=== PATIENT | female | born 1985 | race Caucasian/White ===

== ENCOUNTER → 2017-04-28 | Outpatient (CLI) | payer OTHER ==
[2017-04-28 11:20] LABS: MANUAL MICROSCOPIC REQUIRED? YES; URINE APPEARANCE CLOUDY (CLEAR); URINE BILIRUBIN NEG (NEG); URINE COLOR RED; URINE NITRITE NEG (NEG); URINE PH 5.5 (4.5-7.5); URINE SPECIFIC GRAVITY >= 1.030 (1.000-1.030); UROBILINOGEN NEG (NEG)
[2017-04-28 11:22] LABS: REVIEW REQ? NO
[2017-04-28 11:25] LABS: URINE RBC >30 /hpf (0-4)
[2017-04-28 11:41] LABS: URINE BACTERIA NEG (NEG)
== END | disposition home or self-care (01) ==
LOC: C.LABBC 09:34
PROVIDERS: ATTEND Physician Assistant
DX: R39.9 Unspecified symptoms and signs involving the genitourinary system (principal)

== ENCOUNTER 2017-08-02 02:16 | Emergency (ER) | payer OTHER ==
[~2017-08-02] VITALS: Ht 165.1 cm; Wt 51.7 kg
[2017-08-02 02:22] VITALS: TEMP 36.5; Ht 165.1 cm; Wt 51.7 kg
[2017-08-02] MEDS ORDERED: CEFTRIAXONE SOD INJ 1 GM ADDVIAL IV STA (02:40)
[2017-08-02] MEDS ORDERED: KETOROLAC TROMETHAMINE 30 MG/ML VIAL IV STA (02:40)
[2017-08-02] MEDS ORDERED: ONDANSETRON INJ 2 MG/ML 2 ML VIAL IV STA (02:40)
[2017-08-02] MEDS ORDERED: CALC500C70 PO (02:48)
[2017-08-02 02:58] LABS: BASO % 0.2 %; BASO ABS # 0.02 K/uL (0-0.2); COMPLETE YES; EOS % 0.6 %; HEMATOCRIT 38.9 % (37-47); IG% 0.2 %; MEAN CORPUSCULAR HEMOGLOBIN 30.5 pg (25-34); MEAN CORPUSCULAR HGB CONC 34.7 g/dl (32-36); MEAN PLATELET VOLUME 8.9 fL (7.4-10.4); MONO % 8.7 %; NEUT % 74.3 %; PLATELET COUNT 254 K/uL (130-400); RED BLOOD COUNT 4.42 M/uL (4.2-5.4); WHITE BLOOD COUNT 12.51 K/uL (4.8-10.8)
[2017-08-02 03:07] LABS: MANUAL MICROSCOPIC REQUIRED? YES; URINE APPEARANCE SL CLOUDY (CLEAR); URINE BILIRUBIN NEG (NEG); URINE COLOR RED; URINE NITRITE NEG (NEG); UROBILINOGEN NEG (NEG)
[2017-08-02 03:18] LABS: BUN/CREATININE RATIO 12.2 (10-20); CALCIUM 9.1 mg/dl (8.5-10.1); CREATININE 0.82 mg/dl (0.60-1.20); POTASSIUM 3.4 mmol/L (3.5-5.1)
[2017-08-02] MEDS ORDERED: POTASSIUM CHLORIDE 10 MEQ TABCR PO STA (03:24)
[2017-08-02 03:32] LABS: REVIEW REQ? NO
[2017-08-02 03:38] LABS: URINE BACTERIA NEG (NEG); URINE RBC >30 /hpf (0-4)
--- NOTE | 2017-08-02 03:38 | EMERGENCY ROOM VISIT NOTE ---
History First contact with patient: 02:27 Chief Complaint: URINARY SYMPTOMS Stated Complaint: URINARY SYMPTOMS, VOMITING Nursing Triage Summary: Pt having pain and burning on urination, frequency with blood in urine. Pt has lower back pain. Pt also having N/V History of Present Illness The patient is a 31 year old female who presents to the Emergency Room with complaints of urinary frequency, urgency, dysuria and hematuria for the past few days who tonight developed flank pain and nausea and vomiting. Patient denies chest pain, dyspnea, fever, chills, cough, congestion. She is tolerate by mouth fluids and food. She had a UTI a few months ago. Review of Systems See HPI for pertinent positives & negatives. A total of 10 systems reviewed and were otherwise negative. Past Medical/Surgical History none Social History Smoking Status: Never Smoker Smokeless Tobacco Use: No Alcohol Use: none Drug Use: none Housing Status: lives with family Occupation Status: employed Current/Historical Medications Scheduled Calcium/Vitamin D (Os-Alexander 500 Plus D), 1 TAB PO DAILY Physical Exam Vital Signs Date Time Temp Pulse Resp B/P (MAP) Pulse Ox O2 Delivery O2 Flow Rate FiO2 08/02/17 02:22 36.5 103 20 113/79 100 Room Air Physical Exam VITALS: Vitals are noted on the nurse's note and reviewed by myself. Vital signs stable. GENERAL: Pleasant female, in no acute distress, nondiaphoretic, well-developed well-nourished. SKIN: Capillary reflex less than 2 seconds. HEENT: Normocephalic. PERRLA. EOMI. Nares patent. Mucous membranes moist. Neck is supple without nuchal rigidity. HEART: Regular rate and rhythm without murmurs gallops or rubs. LUNGS: Clear to auscultation bilaterally without wheezes, rales or rhonchi. No retractions or accessory muscle use. ABDOMEN: Positive bowel sounds x 4. Normal tympanic percussion. Soft, suprapubic bladder tenderness, left CVA tenderness, without masses or organomegaly. Paz sign negative. No guarding or rebound tenderness. MUSCULOSKELETAL: No gross musculoskeletal defects. NEURO: Patient was alert and oriented to person place and time. Normal sensation to light and sharp touch. No focal neurological deficits. Medical Decision & Procedures Laboratory Results 08/02/17 02:44 Red Blood Count 4.42, Mean Corpuscular Volume 88.0, Mean Corpuscular Hemoglobin 30.5, Mean Corpuscular Hemoglobin Concent 34.7, Mean Platelet Volume 8.9, Neutrophils (%) (Auto) 74.3, Lymphocytes (%) (Auto) 16.0, Monocytes (%) (Auto) 8.7, Eosinophils (%) (Auto) 0.6, Basophils (%) (Auto) 0.2, Neutrophils # (Auto) 9.29, Lymphocytes # (Auto) 2.00, Monocytes # (Auto) 1.09, Eosinophils # (Auto) 0.08, Basophils # (Auto) 0.02 08/02/17 02:44 Test 08/02/17 02:35 08/02/17 02:44 Urine Color RED Urine Appearance SL CLOUDY (CLEAR) Urine pH 7.0 (4.5-7.5) Urine Specific Caroleen 1.020 (1.000-1.030) Urine Protein 2+ (NEG) Urine Glucose (UA) NEG (NEG) Urine Ketones NEG (NEG) Urine Occult Blood 3+ (NEG) Urine Nitrite NEG (NEG) Urine Bilirubin NEG (NEG) Urine Urobilinogen NEG (NEG) Urine Leukocyte Esterase SMALL (NEG) Urine Test NEG (NEG) White Blood Count 12.51 K/uL (4.8-10.8) Red Blood Count 4.42 M/uL (4.2-5.4) Hemoglobin 13.5 g/dL (12.0-16.0) Hematocrit 38.9 % (37-47) Mean Corpuscular Volume 88.0 fL (80-100) Mean Corpuscular Hemoglobin 30.5 pg (25-34) Mean Corpuscular Hemoglobin Concent 34.7 g/dl (32-36) Platelet Count 254 K/uL (130-400) Mean Platelet Volume 8.9 fL (7.4-10.4) Neutrophils (%) (Auto) 74.3 % Lymphocytes (%) (Auto) 16.0 % Monocytes (%) (Auto) 8.7 % Eosinophils (%) (Auto) 0.6 % Basophils (%) (Auto) 0.2 % Neutrophils # (Auto) 9.29 K/uL (1.4-6.5) Lymphocytes # (Auto) 2.00 K/uL (1.2-3.4) Monocytes # (Auto) 1.09 K/uL (0.11-0.59) Eosinophils # (Auto) 0.08 K/uL (0-0.5) Basophils # (Auto) 0.02 K/uL (0-0.2) RDW Standard Deviation 40.9 fL (36.4-46.3) RDW Coefficient of Variation 12.7 % (11.5-14.5) Immature Granulocyte % (Auto) 0.2 % Immature Granulocyte # (Auto) 0.03 K/uL (0.00-0.02) Anion Gap 5.0 mmol/L (3-11) Est Creatinine Clear Calc Drug Dose 81.9 ml/min Estimated GFR () 111.3 Estimated GFR (Non- 96.0 BUN/Creatinine Ratio 12.2 (10-20) Calcium Level 9.1 mg/dl (8.5-10.1) Medications Administered Medications (Trade) Dose Ordered Sig/Mars Route Start Time Stop Time Status Last Admin Dose Admin Ketorolac Tromethamine (Toradol Inj) 30 mg NOW STAT IV 08/02/17 02:40 08/02/17 02:42 DC 08/02/17 02:51 30 MG Ondansetron HCl (Zofran Inj) 4 mg NOW STAT IV 08/02/17 02:40 08/02/17 02:42 DC 08/02/17 02:51 4 MG Ceftriaxone Sodium (Rocephin Inj) 1 gm NOW STAT IV 08/02/17 02:40 08/02/17 02:42 DC 08/02/17 02:52 1 GM ED Course Prior records/ancillary studies reviewed. Triage Nursing notes reviewed. The patient's history was concerning for urinary symptoms with flank pain Differential diagnosis: Etiologies such as pyelonephritis, renal colic, appendicitis, diverticulitis, mesenteric ischemia, aortic pathology, infections, inflammatory bowel disease, PUD, biliary pathology, UTI, as well as others were entertained. Physical examination findings: As above. ER treatment provided: Rocephin, Toradol, Zofran On reassessment the patient felt better. Diagnostic interpretation by me: The labs revealed leukocytosis, hypokalemia. Urinalysis revealed concerns for infection and sent for culture. Prior urine culture was reviewed and patient was resistant to ampicillin Imaging studies: US RENAL: Right kidney measures 9.9 cm in length. No hydronephrosis or stone. Left kidney measures 10.5 cm in length. No hydronephrosis or stone. Slightly under distended bladder which is otherwise unremarkable. Bilateral ureteral jets visualized. Radiologist: Latisha Maurer M.D. It appears that the patient has pyelonephritis. Patient was neurovascularly and neurologically intact. She is afebrile and nontoxic. She did not have acute abdomen on exam. She was tolerating fluids. She is advised take medications as directed, rest, stay well-hydrated and to follow-up family care in a few days or here in the ER sooner for fevers, vomiting, pain, worsening signs or symptoms or as needed.By the evaluation outlined above emergent etiologies such as appendicitis, diverticulitis, mesenteric ischemia, aortic pathology, inflammatory bowel disease, PUD, biliary pathology, as well as others were deemed relatively unlikely. The pt informed about the findings as listed above. All questions were answered and pleased with the treatment. Return instructions were outlined and the patient was discharged in stable condition. Outpatient prescription management: Omnicef, Zofran, Pyridium Referral: The patient was referred back to their primary care physician for follow-up in 2 to 3 days for a recheck of the current condition. Case reviewed with my attending The chart was completed utilizing [employer] Speech voice recognition software. Grammatical errors, random word insertions, pronoun errors, and incomplete sentences are an occassional consequence of this system due to software limitations, ambient noise, and hardware issues. Any formal questions or concerns about the content, text, or information contained within the body of this dictation should be directly addressed to the physician liaison inspection laboratory assistant for clarification. Medical Decision As above Medication Reconcilliation Current Medication List: was personally reviewed by me Blood Pressure Screening Patient's blood pressure: Normal blood pressure Impression Primary Impression: Pyelonephritis Departure Information Dispostion Home / Self-Care Condition GOOD Referrals Pro,Yony Beauchamp M.D. (PCP) Patient Instructions [facility] Additional Instructions Omnicef 300mg: Take one pill twice daily for 7 days for your urine infection. All antibiotics can cause diarrhea. If this occurs and you feel worse or it does not resolve in 1-2 days follow up with your doctor or return to the Emergency Department as this could be signs of serious underlying problems. If you experience any pain in your tendons or any tendon injury return to the ER for re-evaluation. Any medication can cause an allergic reaction, stop the pills immediately and return to the ER for rash, hives, breathing difficulties, or swelling. Pyridium 200mg: Take one pill three times daily as needed for urinary discomfort. This medication will turn your urine orange. This is normal and nothing to be concerned about. Zofran 4 mg: Take one every six hours as needed for nausea. Avoid alcohol, operating machinery or dangerous equipment, working on ladders or roofs, DRIVING , or situations where being under the influence may be dangerous. Ibuprofen(Motrin, Advil) may be used for fever or pain. Use 400mg every six hours as needed. Take with food. Avoid using more than 1600mg in a 24 hour period. Do not use 1600mg per day for more than three consecutive days without physician direction. Prolonged inappropriate use can lead to stomach upset or ulcers. (AND/OR) Acetaminophen(Tylenol) may be used for fever or pain. Use 500mg every six hours as needed. Avoid using more than 2000mg in a 24 hour period. Rest and drink plenty of fluids as tolerated. Slow sips of water or sports drinks are recommended instead of large amounts all at once. Continue current medications. Once your stomach is settled start with a clear liquid diet (jello, soup broth, etc.) and then advance as tolerated. You should avoid full, heavy meals for about 24 hrs from the time your symptoms resolved. Return to the ER immediately for worsening or persistent abdominal/back pain, vomiting, fevers, worsening of your condition, or as needed. Follow up with your primary physician within 2-3 days for a recheck of the current condition.
[2017-08-02] MEDS ORDERED: CEFDINIR 300 MG CAP PO STA (03:39)
[2017-08-02] MEDS ORDERED: CEFD300C2 PO (03:41)
[2017-08-02] MEDS ORDERED: ONDA4TAB10 SL (03:41)
[2017-08-02] MEDS ORDERED: PHEN-876 PO (03:41)
[2017-08-02 03:42] LABS: ZZUR CULT IF INDIC CLEAN CATCH NO
[2017-08-02] MEDS ORDERED: PHENAZOPYRIDINE HOME PACK 200 MG VIAL PO ONE (03:45)
[2017-08-02] MEDS ORDERED: ONDANSETRON HOME PACK 4MG OD TAB PO ONE (03:45)
[2017-08-02 04:00] VITALS: BP 100/51; PULSE 81; O2SAT 99
--- NOTE | 2017-08-02 05:55 | DIAGNOSTIC IMAGING REPORT ---
(RENAL)RETROPERITON COMP CLINICAL HISTORY: 31 years-old Female presenting with back pain, UTI. TECHNIQUE: Real-time grayscale and limited color Doppler ultrasound imaging of the kidneys and bladder was performed. COMPARISON: CT from 12/09/2014. FINDINGS: Right kidney: Normal echogenicity. Right kidney measures 9.9 cm. No hydronephrosis. No convincing evidence of calculus or mass. Normal perfusion. Left kidney: Normal echogenicity. Left kidney measures 10.5 cm. No hydronephrosis. No convincing evidence of calculus or mass. Normal perfusion. Bladder: No bladder wall thickening. Bilateral ureteral jets present. Other: None. IMPRESSION: 1. Normal renal ultrasound. No obstruction. Electronically signed by: Moncho Calero M.D. 08/02/2017 5:54 AM Dictated Date/Time: 08/02/2017 5:53 AM
== END 2017-08-02 04:00 | disposition home or self-care (01) ==
LOC: C.EDB 02:17 → C.EDA 04:00
DX: N12 Tubulo-interstitial nephritis, not specified as acute or chronic (principal)

== ENCOUNTER 2020-03-01 03:51 | Inpatient (IN) ==
[2020-03-01] MEDS ORDERED: OXYTOCIN 30 UNITS/500 ML BAG IV PRN ×2 (04:31→11:00)
[2020-03-01 04:48] LABS: Hemoglobin 12.8 g/dL (12.0-16.0); Mean Corpuscular Hemoglobin 30.8 pg (25-34); Mean Corpuscular Volume 91.3 fL (80-100); Mean Platelet Volume 9.4 fL (7.4-10.4); Platelet Count 262 K/uL (130-400); RDW Coefficient of Variation 16.7 % (11.5-14.5); RDW Standard Deviation 54.8 fL (36.4-46.3); Red Blood Count 4.16 M/uL (4.2-5.4); White Blood Count 12.52 K/uL (4.8-10.8)
[2020-03-01 04:56] LABS: Mean Corpuscular Hgb Conc 33.7 g/dL (32-36)
[2020-03-01] MEDS: LACTATED RINGER'S 1,000 ML IV PRN ×2 (07:00→09:44)
[2020-03-01] MEDS ORDERED: BUPIVACAINE 0.25% 30 ML VIAL ONE (07:12)
[2020-03-01] MEDS ORDERED: fentaNYL citrate 100 MCG/2 ML VIAL ONE (07:12)
[2020-03-01] MEDS ORDERED: ePHEDrine sulfate 50 MG/ML AMP ONE (07:12)
[2020-03-01] MEDS ORDERED: fentaNYL 2MCG/ML ROPIV 1.25MG/ML 100 ML BAG EPI ONE (07:13)
[2020-03-01] MEDS ORDERED: DiphenhydrAMINE HCL 50 MG/ML VIAL IV PRN (07:42)
[2020-03-01] MEDS ORDERED: NALOXONE HCL 0.4 MG/1 ML VIAL/CARP IV PRN (07:42)
[2020-03-01] MEDS ORDERED: NALOXONE HCL 1 MG in SODIUM CHLORIDE 0.9% 1000ML 1,000 ML IV PRN (07:42)
[2020-03-01] MEDS ORDERED: ONDANSETRON INJ 2 MG/ML 2 ML VIAL IV PRN (07:42)
[2020-03-01] MEDS ORDERED: fentaNYL 2MCG/ML ROPIV 1.25MG/ML 100 ML BAG EPI PRN (07:42)
[2020-03-01] MEDS ORDERED: ePHEDrine sulfate 50 MG/ML AMP IV PRN (07:42)
--- NOTE | 2020-03-01 07:45 | Anesthesiology Consultation ---
Date of Service March 01, 2020 Assessment & Plan (1) Encounter for pre-operative examination: Chart Review Chart Review: Patient NOT seen in Pre Admission Testing and Acceptable Risk for Labor Epidural Consults Requested none ASA ASA2 Proposed Anesthesia Anesthesia Type: Labor Epidural Risk / Benefits Reviewed With: PT / POA / Parent / Guardian, Accepts Plan and Informed Consent Obtained History Height/Weight Height: 5 ft 5 in Weight: 66.224 kg Allergies Allergy/AdvReac Type Severity Reaction Status Date / Time Penicillins Allergy Unknown Verified 02/22/20 08:11 Medications Home Medications Medication Instructions Recorded Confirmed Last Taken prenat.vits,adonis,vgt-qovm-[id number] 1 tab PO DAILY 08/18/19 03/01/20 02/29/20 ferrous sulfate 325 mg PO DAILY 01/04/20 03/01/20 02/29/20 12:00 Active Medications Generic Name Dose Route Start Last Admin Trade Name Freq PRN Reason Stop Dose Admin Lactated Ringer's 1,000 mls @ 125 mls/hr 03/01/20 04:31 03/01/20 07:00 Lr IV 03/03/20 04:30 999 mls/hr .Q8H PRN Administration L&D Protocol Protocol NPO Date Last Intake of Fluids: 03/01/20 Time Last Intake of Fluids: 06:00 Date Last Intake of Solids: 02/29/20 Time Last Intake of Solids: 20:00 Past Medical History Medical History Adenomyosis Endometriosis History of varicella (spontaneous vaginal delivery) (spontaneous vaginal delivery) 2009- Exercise / Class Metabolic Activity II 4-5 Yardwork/Stairs/Walk up hill Past Family History Family History Mother Dyslipidemia Hypertension Breast cancer Other Cancer Endometriosis Past Surgical History Surgical History H/O oral surgery History of ear surgery History of laparoscopy Past Anesthesia History No Hx of Anesthesia Complications and No Family Hx of Anesthesia Complications History of PONV No Hx of PONV and No Hx of Motion Sickness Social History Smoking Status: Never smoker Hx Alcohol Use: No Hx Substance Use: No Physical Exam Vital Signs Last Vital Signs Temp 36.9 C 03/01/20 06:06 Pulse 77 03/01/20 07:42 Resp 20 03/01/20 04:08 BP 101/61 03/01/20 07:42 Pulse Ox 99 03/01/20 07:40 ENMT Mouth: no dentition abnormality Thyromental Distance: > or= 3.5 Finger Breadths Mallampati Class: II Neck normal visual inspection Respiratory normal respiratory effort Auscultation: lungs clear to auscultation bilaterally Cardiovascular Rate/Rhythm: regular rate and regular rhythm Psychiatric Orientation: alert Testing Laboratory Results 03/01/20 04:39
--- NOTE | 2020-03-01 08:01 | History & Physical Report ---
Date of Service March 01, 2020 Assessment & Plan (1) PROM with onset of labor within 24 hours of rupture: pt has been admitted. received epidural. fhts categ 1. Admission and Anticipated Discharge Date Admission Date: March 01, 2020 History of Present Illness Chief Complaint: rom at 0230 clear fluid Primary Care Provider: Yony Benavidez MD 34yo at 40+wks ega presents with above cc. Was confirmed rom by nursing and beginning to feel ctx. When i saw her this am, was feeling stronger ctx. no vb. +fm. PNC uncomplicated. has pap smear issues requiring colpo pp PNL Rh pos, ri, gbs neg OBH: x 1 GYNH: nl paps no stds. Allergies Allergy/AdvReac Type Severity Reaction Status Date / Time Penicillins Allergy Unknown Verified 02/22/20 08:11 Home Medications Home Medications Medication Instructions Recorded Confirmed Type prenat.vits,adonis,vth-lpqb-puczv 1 tab PO DAILY 08/18/19 03/01/20 History ferrous sulfate 325 mg PO DAILY 01/04/20 03/01/20 History Patient History Medical History Adenomyosis Endometriosis History of varicella (spontaneous vaginal delivery) (spontaneous vaginal delivery) 2010- Surgical History H/O oral surgery History of ear surgery History of laparoscopy Family History Mother Dyslipidemia Hypertension Breast cancer Other Cancer Endometriosis Social History Smoking Status: Never smoker Hx Alcohol Use: No Hx Substance Use: No Preferred Language: Greek Communication Ability: Effective Insulation Mechanic Required: No Beliefs That Will Affect Care: None marital status: Single marital status details: Tru Phillips (26) [phone] Current Living Situation: Spouse Current Living Situation Comment: lives with son, 1 dog. 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 Other Information That Helps Us Care for You: No Feels Safe at Home: Yes Safety Concerns: Feels Safe At This Time Review of Systems per hpi Physical Exam Constitutional: WD/WN, vitals as above Gastrointestinal (Abdomen): Percussion/Palpation: abdomen soft (gravid); abdomen nontender Neurologic: grosslynormal Psychiatric: A+Ox3, euthymic affect Genitourinary: OB Exam Abdomen: + vertex and + estimated weight (7#) Manual OB Exam: + cervical dilation (3cm per nurse) OB Exam Monitor Tracing: + external FHT monitor used (130 mod variability), + external uterine monitor used (q3), + category I and + normal FHT variability Results & Data ([facility]) Vital Signs (Past 12 Hours) Vital Signs Temp Pulse Resp BP Pulse Ox 03/01/20 07:55 84 100 03/01/20 07:54 76 100/61 03/01/20 07:52 63 97/58 L 03/01/20 07:50 75 97/56 L 100 03/01/20 07:48 84 104/63 03/01/20 07:46 86 103/59 L 03/01/20 07:45 81 100 03/01/20 07:44 80 98/60 L 03/01/20 07:42 77 101/61 03/01/20 07:40 81 103/62 99 03/01/20 07:38 79 103/66 03/01/20 07:36 75 107/61 03/01/20 07:35 77 100 03/01/20 07:34 87 110/59 L 03/01/20 07:32 80 104/63 03/01/20 07:30 88 100 03/01/20 07:25 84 99 03/01/20 07:20 82 99 03/01/20 07:16 76 98 03/01/20 07:10 97 H 98 03/01/20 07:04 94 H 118/70 03/01/20 06:06 98.4 F 03/01/20 04:08 98.1 F 88 20 110/67 03/01/20 04:07 88 110/67 03/01/20 04:06 98.1 F 20 Coding Level of Care Code None Diagnoses PROM with onset of labor within 24 hours of rupture O42.00
[2020-03-01] MEDS ORDERED: OXYCODONE/ACETAMINOPHEN 5mg/325mg TAB PO PRN (11:00)
[2020-03-01] MEDS ORDERED: ACETAMINOPHEN 325 MG TAB PO PRN (11:00)
[2020-03-01] MEDS ORDERED: bisacodyL 10 MG SUPP PR PRN (11:00)
[2020-03-01] MEDS ORDERED: DIPHTHERIA/TETANUS/PERTUSSIS 0.5 ML SYR/VIAL IM ONE (11:00)
[2020-03-01] MEDS ORDERED: SUPERCREAM 0.870% 15 GM JAR EXT PRN (11:00)
[2020-03-01] MEDS ORDERED: BENZOCAINE 20% AER SPR 82.5 GM CAN EXT PRN (11:00)
[2020-03-01] MEDS ORDERED: HYDROCORTISONE ACETATE 25 MG SUPP PR PRN (11:00)
--- NOTE | 2020-03-01 11:52 | Anesthesia Procedure Note ---
Date of Service March 01, 2020 Anesthesia Post Epidural Note Vital Signs Vital Signs: Temp Pulse Resp BP Pulse Ox 36.9 C 92 H 20 108/57 L 96 03/01/20 11:05 03/01/20 11:48 03/01/20 11:20 03/01/20 11:48 03/01/20 10:15 Notes Mental Status: alert / awake / arousable Nausea / Vomiting: adequately controlled Pain: adequately controlled Airway Patency, RR, SpO2: stable & adequate BP & HR: stable & adequate Hydration State: stable & adequate Neuraxial Anesthesia: was administered and sensory block is resolving Anesthetic Complications: no major complications apparent and Pt Satisfied with anesthetic care Epidural: Removed without complications and With tip intact
--- NOTE | 2020-03-01 14:19 | Delivery Summary ---
Vaginal Delivery Summary Date of Service March 01,
--- NOTE | 2020-03-01 14:31 | Delivery Summary ---
DATE OF OPERATION: 03/01/2020 The patient is a 34-year-old 2, para 1-0-0-1 white female, who presented at 40+ weeks with ruptured membranes at approximately 0300 hours. The fluid was clear. She progressed into active labor spontaneously. She received effective epidural analgesia. After she was fully dilated she pushed effectively over intact perineum for delivery of a viable female . After the head was delivered, the right arm then presented and delivered spontaneously followed by the rest of the infant. The was then placed on the mother's abdomen for further attention and drying. The infant was crying and moving all 4 limbs. The cord was clamped after approximately 30 seconds as the cord was somewhat short. The placenta was then expressed intact with a 3-vessel cord. A second degree perineal laceration was repaired with 3-0 chromic in the usual fashion. Estimated blood loss was 400 mL. Mother and infant were doing well after delivery. bleeding was controlled with dilute Pitocin. I attest to the content of the Intraoperative Record and any orders documented therein. Any exception s are noted below.
[2020-03-01] MEDS: IBUPROFEN 600 MG TAB PO PRN ×2 (15:20→20:28)
[2020-03-01] MEDS: DOCUSATE SODIUM 100 MG CAP PO SCH (20:28)
[2020-03-02] MEDS: IBUPROFEN 600 MG TAB PO PRN ×2 (02:02→08:36)
[2020-03-02 07:09] LABS: Hematocrit (blood only) 29.4 % (37-47); Hemoglobin 9.9 g/dL (12.0-16.0); Mean Corpuscular Hemoglobin 30.7 pg (25-34); Mean Corpuscular Hgb Conc 33.7 g/dL (32-36); Mean Platelet Volume 9.2 fL (7.4-10.4); Platelet Count 197 K/uL (130-400); RDW Coefficient of Variation 16.8 % (11.5-14.5); RDW Standard Deviation 56.3 fL (36.4-46.3); Red Blood Count 3.23 M/uL (4.2-5.4); White Blood Count 15.67 K/uL (4.8-10.8)
[2020-03-02] MEDS ORDERED: PRENATAL VITAMIN 1 TAB PO SCH (08:00)
--- NOTE | 2020-03-02 08:02 | Obstetrical Progress Note ---
Date of Service March 02, 2020 Assessment & Plan (1) Encounter for care and examination after delivery: good post- recovery continue current care plan Subjective Ambulation: ambulating normally Voiding: no voiding problems Passing Gas:: Yes Diet Tolerance:: regular diet Lochia:: Moderate Feeding Type:: bottle feeding Review of Systems All systems reviewed & are unremarkable except as noted in HPI & below Physical Exam Constitutional WD/WN, vitals as above Psychiatric A+Ox3, euthymic affect Genitourinary OB Exam Abdomen: + fundal height (1 below U) Fundus: + firm Results & Data ([facility]) Vital Signs (Past 12 Hours) Vital Signs Temp Pulse Resp BP Pulse Ox 03/02/20 03:10 98.2 F 82 16 127/82 03/01/20 23:10 98.4 F 76 18 101/66 03/01/20 20:15 98.4 F 93 H 20 107/67 98
[2020-03-02] MEDS: DOCUSATE SODIUM 100 MG CAP PO SCH (08:36)
[2020-03-02] MEDS ORDERED: bisacodyL 5 MG TABEC PO SCH (20:00)
== END 2020-03-02 11:50 | disposition home or self-care (01) | DRG 807 ==
LOC: OPB 03:51 → 4S1 03:54 → 4S2 15:35

== ENCOUNTER 2021-08-04 22:56 | Inpatient (IN) ==
[2021-08-04] MEDS ORDERED: OXYTOCIN 30 UNITS/500 ML BAG IV PRN (23:15)
[2021-08-04] MEDS ORDERED: LACTATED RINGER'S 1,000 ML IV PRN (23:15)
[2021-08-04] MEDS ORDERED: ePHEDrine sulfate 50 MG/ML AMP ONE (23:27)
[2021-08-04] MEDS ORDERED: fentaNYL citrate 100 MCG/2 ML VIAL ONE (23:28)
[2021-08-04] MEDS ORDERED: BUPIVACAINE 0.25% 30 ML VIAL ONE (23:28)
[2021-08-04] MEDS ORDERED: fentaNYL 2MCG/ML ROPIVACAINE 1.25MG/ML 100 ML BAG EPI ONE (23:28)
[2021-08-04] MEDS ORDERED: SODIUM CHLORIDE 0.9% INJ 10 ML VIAL ONE (23:28)
[2021-08-04 23:37] LABS: Hematocrit (blood only) 29.8 % (37-47); Hemoglobin 9.5 g/dL (12.0-16.0); Mean Corpuscular Hemoglobin 27.7 pg (25-34); Mean Corpuscular Volume 86.9 fL (80-100); Mean Platelet Volume 9.1 fL (7.4-10.4); Nucleated RBC # (auto) 0.02 K/uL (0-0); Nucleated RBC % (auto) 0.1 %; Platelet Count 336 K/uL (130-400); RDW Standard Deviation 47.7 fL (36.4-46.3); Red Blood Count 3.43 M/uL (4.2-5.4); White Blood Count 11.52 K/uL (4.8-10.8)
[2021-08-04 23:42] LABS: Mean Corpuscular Hgb Conc 31.9 g/dL (32-36)
[2021-08-04] MEDS ORDERED: diphenhydrAMINE 50 MG/ML VIAL IV PRN (23:47)
[2021-08-04] MEDS ORDERED: fentaNYL 2MCG/ML ROPIVACAINE 1.25MG/ML 100 ML BAG EPI PRN (23:47)
[2021-08-04] MEDS ORDERED: ePHEDrine sulfate 50 MG/ML AMP IV PRN (23:47)
[2021-08-04] MEDS ORDERED: NALOXONE HCL 1 MG in SODIUM CHLORIDE 0.9% 1000ML 1,000 ML IV PRN (23:47)
[2021-08-04] MEDS ORDERED: ONDANSETRON INJ 2 MG/ML 2 ML VIAL IV PRN (23:47)
[2021-08-04] MEDS ORDERED: NALBUPHINE HCL INJ 10 MG/ML AMP IV PRN (23:47)
[2021-08-04] MEDS ORDERED: NALOXONE HCL 0.4 MG/1 ML VIAL/CARP IV PRN (23:47)
--- NOTE | 2021-08-04 23:47 | Anesthesiology Consultation ---
Date of Service August 04, 2021 Assessment & Plan (1) Encounter for pre-operative examination: Chart Review Chart Review: Acceptable Risk for Surgery and Patient NOT seen in Pre Admission Testing Consults Requested none History Height/Weight Height: 5 ft 5 in Weight: 65.771 kg Allergies Allergy/AdvReac Type Severity Reaction Status Date / Time Penicillins Allergy Unknown Unknown Verified 08/04/21 23:25 Medications Home Medications Medication Instructions Recorded Confirmed Last Taken prenat.vits,adonis,jsy-zpcg-lrnco 1 tab PO HS 01/21/21 08/04/21 08/04/21 ferrous sulfate 325 mg (65 mg 325 mg PO HS 03/09/21 08/04/21 08/04/21 iron) tablet (iron) acetone (urine) test (Ketone Urine #50 ea 07/01/21 07/24/21 Unknown Test) blood sugar diagnostic (OneTouch #150 ea 07/01/21 07/24/21 Unknown Verio test strips) blood-glucose meter (OneTouch #1 ea 07/01/21 07/24/21 Unknown Verio Flex meter) lancets 33 gauge (OneTouch Delica #150 ea 07/01/21 07/24/21 Unknown Plus Lancet) Past Medical History Medical History Adenomyosis Endometriosis History of varicella (spontaneous vaginal delivery) (spontaneous vaginal delivery) 2009- Past Family History Family History Mother Dyslipidemia Hypertension Breast cancer, Onset Age: 45 Father Elevated PSA Brother No problems noted. Son No problems noted. Daughter No problems noted. Other Cancer Endometriosis Past Surgical History Surgical History H/O oral surgery wisdom teeth removal History of ear surgery cosmetic, "ears pinned" History of laparoscopy Social History Smoking Status: Never smoker Hx Alcohol Use: No Hx Substance Use: No substance use type: does not use Physical Exam Vital Signs Last Vital Signs Temp 36.8 C 08/04/21 23:25 Pulse 99 H 08/04/21 23:17 Resp 18 08/04/21 23:25 BP 121/84 08/04/21 23:17 Testing Laboratory Results 08/04/21 23:27
--- NOTE | 2021-08-05 01:27 | History & Physical Report ---
Date of Service August 05, 2021 Assessment & Plan (1) Normal labor: Plan: IUP at 39+ weeks in active labor with SPROM requesting epidural analgesia anticipate vaginal Admission and Anticipated Discharge Date Admission Date: August 04, 2021 History of Present Illness Primary Care Provider: Hazel Burgess MD Patient is a 35 yo white female EDC 08/08/21 who presents with SPROM and onset of regular ctns. complicated by diet controlled GDM. AC's have been normal . GBS negative. Allergies Allergy/AdvReac Type Severity Reaction Status Date / Time Penicillins Allergy Unknown Unknown Verified 08/04/21 23:25 Home Medications Medication Instructions Recorded Confirmed Type prenat.vits,adonis,ajb-kdil-ewajv 1 tab PO HS 01/21/21 08/04/21 History ferrous sulfate 325 mg (65 mg 325 mg PO HS 03/09/21 08/04/21 History iron) tablet (iron) acetone (urine) test (Ketone Urine #50 ea 07/01/21 07/24/21 Rx Test) blood sugar diagnostic (OneTouch #150 ea 07/01/21 07/24/21 Rx Verio test strips) blood-glucose meter (OneTouch #1 ea 07/01/21 07/24/21 Rx Verio Flex meter) lancets 33 gauge (OneTouch Delica #150 ea 07/01/21 07/24/21 Rx Plus Lancet) Patient History Medical History Adenomyosis Endometriosis History of varicella (spontaneous vaginal delivery) (spontaneous vaginal delivery) 2009- Surgical History H/O oral surgery wisdom teeth removal History of ear surgery cosmetic, "ears pinned" History of laparoscopy Family History Mother Dyslipidemia Hypertension Breast cancer, Onset Age: 45 Father Elevated PSA Brother No problems noted. Son No problems noted. Daughter No problems noted. Other Cancer Endometriosis Social History (Updated 05/21/21 @ 14:25 by Hazel Burgess MD) Smoking Status: Never smoker Second Hand Exposure: No; Hx Alcohol Use: No Hx Substance Use: No Preferred Language: Tajik Communication Ability: Effective Visual Impairment: No Limitations Hearing Ability: Normal Community Development Specialist Required: No Beliefs That Will Affect Care: None marital status: Single marital status details: Tru Phillips (27) [phone] Current Living Situation: Significant Other Current Living Situation Comment: lives with FOB, children, 1 dog. 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, patient access How many Children do You have: 2 Other Information That Helps Us Care for You: No Feels Safe at Home: Yes Safety Concerns: Feels Safe At This Time Childhood Exposure to Second-Hand Smoke: No caffeine: Yes during the past year weight has: remained stable Dental Care, Regularly: No Physical Activity Frequency: Daily Seatbelt Use: always Sunscreen Use: Yes Assistive Devices: None Review of Systems All systems reviewed & are unremarkable except as noted in HPI & below Physical Exam Constitutional: WD/WN, vitals as above Psychiatric: A+Ox3, euthymic affect Genitourinary: OB Exam Abdomen: + vertex and + regular contractions Manual OB Exam: + cervical dilation (on admission) 7 cm and + amniotic fluid (grossly ruptured) clear OB Exam Monitor Tracing: + external FHT monitor used, + external uterine monitor used, + category I and + normal FHT variability Results & Data ([facility]) Vital Signs (Past 12 Hours) Vital Signs Temp Pulse Resp BP Pulse Ox 08/05/21 01:18 108 H 100 08/05/21 01:13 77 100 08/05/21 01:08 71 100 08/05/21 01:05 75 108/59 L 08/05/21 01:03 70 100 08/05/21 00:58 71 98 08/05/21 00:53 76 98 08/05/21 00:51 75 105/53 L 08/05/21 00:48 82 100 08/05/21 00:43 90 100 08/05/21 00:40 18 08/05/21 00:38 83 99 08/05/21 00:35 83 100/59 L 08/05/21 00:33 81 98 08/05/21 00:28 87 101/60 99 08/05/21 00:25 16 08/05/21 00:23 89 98 08/05/21 00:22 84 99/58 L 08/05/21 00:20 83 16 99/57 L 08/05/21 00:18 98 H 103/55 L 98 08/05/21 00:16 90 113/54 L 08/05/21 00:15 98.2 F 18 08/05/21 00:14 94 H 128/57 L 90 08/05/21 00:13 96 H 99 08/05/21 00:12 133 H 126/53 L 08/05/21 00:10 98 H 113/56 L 08/05/21 00:08 85 18 122/65 98 08/05/21 00:03 96 H 98 08/04/21 23:58 83 99 08/04/21 23:53 88 94 08/04/21 23:25 98.2 F 18 08/04/21 23:17 99 H 121/84 Coding Level of Care Code None Diagnoses Normal labor O80; Z37.9
[2021-08-05] MEDS ORDERED: DIPHTHERIA/TETANUS/PERTUSSIS 0.5 ML SYR/VIAL IM ONE (02:35)
[2021-08-05] MEDS ORDERED: HYDROCORTISONE ACETATE 25 MG SUPP PR PRN (02:35)
[2021-08-05] MEDS ORDERED: SUPERCREAM 0.870% 15 GM JAR EXT PRN (02:35)
[2021-08-05] MEDS ORDERED: OXYTOCIN 30 UNITS/500 ML BAG IV PRN (02:35)
[2021-08-05] MEDS ORDERED: bisacodyL 10 MG SUPP PR PRN (02:35)
[2021-08-05] MEDS ORDERED: ACETAMINOPHEN 325 MG TAB PO PRN (02:35)
[2021-08-05] MEDS ORDERED: BENZOCAINE 20% AER SPR 82.5 GM CAN EXT PRN (02:35)
[2021-08-05] MEDS ORDERED: oxyCODONE/ACETAMINOPHEN 5mg/325mg TAB PO PRN (02:35)
--- NOTE | 2021-08-05 02:48 | Delivery Summary ---
Vaginal Delivery Summary Date of Service August 05, 2021 Vaginal Delivery Summary and 1st Degree LAC Patient is a 35-year-old 3 para 2-0-0-2 white female who presents at 39+ weeks with spontaneous rupture of membranes for clear fluid and active labor. She requested epidural analgesia upon arrival in labor and delivery and progressed to complete dilation with the urge to push. She pushed effectively over intact perineum for delivery of a viable female . Tight nuchal cord was cut and clamped prior to delivering the rest of the infant. The rest of the infant delivered easily and was placed on the mother's abdomen for further attention and drying. She was vigorous and moving all 4 limbs. The placenta was expressed intact with a three-vessel cord. A first-degree perineal laceration was repaired with 3-0 chromic in the usual fashion. Estimated blood loss was 200 cc. bleeding was controlled with dilute Pitocin and fundal massage. Mother and were doing well after delivery. [facility] Vaginal Delivery Charge Delivery Type Details: and 1st Degree LAC
[2021-08-05] MEDS: IBUPROFEN 600 MG TAB PO PRN ×4 (03:04→20:27)
--- NOTE | 2021-08-05 06:51 | Anesthesia Procedure Note ---
Date of Service August 05, 2021 Anesthesia Post Epidural Note Vital Signs Vital Signs: Temp Pulse Resp BP Pulse Ox 36.8 C 79 18 110/70 100 08/05/21 04:30 08/05/21 04:30 08/05/21 04:30 08/05/21 04:30 08/05/21 01:38 Notes Mental Status: alert / awake / arousable and participated in evaluation Nausea / Vomiting: adequately controlled Pain: adequately controlled Airway Patency, RR, SpO2: stable & adequate BP & HR: stable & adequate Hydration State: stable & adequate Neuraxial Anesthesia: was administered and sensory block is resolving Anesthetic Complications: no major complications apparent and Pt Satisfied with anesthetic care Epidural: Removed without complications and With tip intact Notes: Epidural site clean, dry and intact. No signs of edema, erythema or bruising at insertion site. Pt instructed to request anesthesia if she has residual lower extremity numbness or if she develops lower extremity pain or weakness, back pain or headache.
--- NOTE | 2021-08-05 08:07 | Obstetrical Progress Note ---
Date of Service August 05, 2021 Assessment & Plan (1) Encounter for care and examination after delivery: satisfactory course continue current plan Subjective Ambulation: ambulating normally Voiding: no voiding problems Passing Gas:: Yes Diet Tolerance:: regular diet Lochia:: Small Feeding Type:: bottle feeding Review of Systems All systems reviewed & are unremarkable except as noted in HPI & below Physical Exam Constitutional WD/WN, vitals as above Psychiatric A+Ox3, euthymic affect Genitourinary OB Exam Abdomen: + fundal height Fundus: + firm and + relation to umbilicus (at U) Results & Data ([facility]) Vital Signs (Past 12 Hours) Vital Signs Temp Pulse Pulse Pulse Resp BP BP 08/05/21 07:15 98.1 F 76 12 123/75 08/05/21 04:30 98.2 F 79 18 110/70 08/05/21 04:17 79 110/70 08/05/21 04:15 98.2 F 18 08/05/21 04:13 85 104/59 L 08/05/21 04:00 16 08/05/21 03:58 86 110/63 08/05/21 03:43 81 117/75 08/05/21 03:28 86 103/63 08/05/21 03:13 75 118/56 L 08/05/21 03:00 98.2 F 18 08/05/21 02:58 83 111/64 08/05/21 02:45 16 08/05/21 02:43 87 132/62 08/05/21 02:28 75 134/58 L 08/05/21 02:17 94 H 153/66 H 08/05/21 02:15 16 08/05/21 02:00 98.2 F 18 08/05/21 01:51 144 H 157/111 H 08/05/21 01:38 93 H 08/05/21 01:33 123 H 08/05/21 01:28 88 08/05/21 01:23 85 08/05/21 01:18 108 H 08/05/21 01:13 77 08/05/21 01:08 71 08/05/21 01:05 75 108/59 L 08/05/21 01:03 70 08/05/21 00:58 71 08/05/21 00:53 76 08/05/21 00:51 75 105/53 L 08/05/21 00:48 82 08/05/21 00:43 90 08/05/21 00:40 18 08/05/21 00:38 83 08/05/21 00:35 83 100/59 L 08/05/21 00:33 81 08/05/21 00:28 87 101/60 08/05/21 00:25 16 08/05/21 00:23 89 08/05/21 00:22 84 99/58 L 08/05/21 00:20 83 16 99/57 L 08/05/21 00:18 98 H 103/55 L 08/05/21 00:16 90 113/54 L 08/05/21 00:15 98.2 F 18 08/05/21 00:14 94 H 128/57 L 08/05/21 00:13 96 H 08/05/21 00:12 133 H 126/53 L 08/05/21 00:10 98 H 113/56 L 08/05/21 00:08 85 18 122/65 08/05/21 00:03 96 H 08/04/21 23:58 83 08/04/21 23:53 88 08/04/21 23:25 98.2 F 18 08/04/21 23:17 99 H 121/84 Pulse Ox 08/05/21 07:15 99 08/05/21 04:30 08/05/21 04:17 08/05/21 04:15 08/05/21 04:13 08/05/21 04:00 08/05/21 03:58 08/05/21 03:43 08/05/21 03:28 08/05/21 03:13 08/05/21 03:00 08/05/21 02:58 08/05/21 02:45 08/05/21 02:43 08/05/21 02:28 08/05/21 02:17 08/05/21 02:15 08/05/21 02:00 08/05/21 01:51 08/05/21 01:38 100 08/05/21 01:33 100 08/05/21 01:28 100 08/05/21 01:23 100 08/05/21 01:18 100 08/05/21 01:13 100 08/05/21 01:08 100 08/05/21 01:05 08/05/21 01:03 100 08/05/21 00:58 98 08/05/21 00:53 98 08/05/21 00:51 08/05/21 00:48 100 08/05/21 00:43 100 08/05/21 00:40 08/05/21 00:38 99 08/05/21 00:35 08/05/21 00:33 98 08/05/21 00:28 99 08/05/21 00:25 08/05/21 00:23 98 08/05/21 00:22 08/05/21 00:20 08/05/21 00:18 98 08/05/21 00:16 08/05/21 00:15 08/05/21 00:14 90 08/05/21 00:13 99 08/05/21 00:12 08/05/21 00:10 08/05/21 00:08 98 08/05/21 00:03 98 08/04/21 23:58 99 08/04/21 23:53 94 08/04/21 23:25 08/04/21 23:17
[2021-08-05] MEDS: PRENATAL VITAMIN 1 TAB PO SCH (08:30)
[2021-08-05] MEDS: DOCUSATE SODIUM 100 MG CAP PO SCH ×2 (08:30→20:27)
--- NOTE | 2021-08-06 06:23 | Obstetrical Progress Note ---
Date of Service August 06, 2021 Assessment & Plan (1) Encounter for care and examination after delivery: Plan: 35 yo , now , PPD 1 s/p at 39 weeks -Expect D/C today -Continue routine care -Vitals reviewed- HDS, afebrile -O+, GBS-, Rubella immune -Encourage ambulation, regular diet -Pain control with ibuprofen, acetaminophen PRN -Encourage -F/u in [address] Lyle Admission and Anticipated Discharge Date Admission Date: August 04, 2021 Supervising Physician Co-Signing Physician Notes Resident Physician Supervision Note: I interviewed and examined the patient. Discussed with Dr. Cornelius and agree with findings and plan as documented in the note. Any exceptions or clarifications are listed here: PPD#2 doing well. DC home today. Discharge planning reviewed. Documented By: Galilea Dean, Subjective PPD 1 s/p . Patient seen and examined at bedside. Reports no acute overnight events. Ambulating and voiding. Passing gas w/o BM. Regular diet w/o N/V. Lochia small. Bottle feeding by choice w/o complication. Pain 7/10 at its worst, but does improve with motrin. Review of Systems Review of Systems: Denies fevers/chills. Denies dyspnea, cough. Denies chest pain. Denies breast pain or discharge. Denies dysuria. Denies headache. Denies back pain. Physical Exam Physical Exam: General: Alert, oriented, no acute distress Cardiac: Regular rate and rhythm, normal S1, S2. No murmurs appreciated. Respiratory: Clear to auscultation b/l with good air flow entry, symmetric chest rise and fall. No wheezes or crackles. No increased work of breathing or accessory muscle use Abdomen: Soft, nontender, nondistended. Fundus firm and palpable at 2 cm below umbilicus. No guarding or rebound. Skin: No rashes or lesions Extremities: Warm, dry, well-perfused with capillary refill <2s b/l. No lower extremity edema, erythema or swelling. Negative Kris's sign b/l. Results & Data ([facility]) Vital Signs (Past 12 Hours) Vital Signs Temp Pulse Resp BP Pulse Ox 08/06/21 00:30 36.8 C 87 18 101/62 08/05/21 20:20 36.6 C 88 20 112/74 98
[2021-08-06 06:45] LABS: Hematocrit (blood only) 25.1 % (37-47); Hemoglobin 7.9 g/dL (12.0-16.0); Mean Corpuscular Hemoglobin 27.5 pg (25-34); Mean Corpuscular Hgb Conc 31.5 g/dL (32-36); Mean Corpuscular Volume 87.5 fL (80-100); Mean Platelet Volume 8.9 fL (7.4-10.4); Platelet Count 261 K/uL (130-400); RDW Coefficient of Variation 15.3 % (11.5-14.5); RDW Standard Deviation 48.7 fL (36.4-46.3); Red Blood Count 2.87 M/uL (4.2-5.4); White Blood Count 14.05 K/uL (4.8-10.8)
[2021-08-06] MEDS: DOCUSATE SODIUM 100 MG CAP PO SCH (07:54)
[2021-08-06] MEDS: PRENATAL VITAMIN 1 TAB PO SCH (07:54)
[2021-08-06] MEDS: IBUPROFEN 600 MG TAB PO PRN (07:54)
[2021-08-06] MEDS ORDERED: SIMETHICONE 80 MG CHEW PO PRN (08:13)
[2021-08-06] MEDS ORDERED: POLYETHYLENE (MIRALAX) 17 GM PACK PO PRN (08:13)
[2021-08-06] MEDS ORDERED: bisacodyL 5 MG TABEC PO SCH (20:00)
== END 2021-08-06 12:10 | disposition home or self-care (01) | DRG 807 ==
LOC: OPB 22:56 → 4S1 22:59 → 4S2 08-05 04:30